=== PATIENT | female | born 1980 | race Caucasian/White ===

== ENCOUNTER 2020-02-14 11:46 | Emergency (ER) | payer MEDICAID ==
[~2020-02-14] VITALS: Ht 170.2 cm; Wt 119.1 kg
[~2020-02-14 11:46] MED LIST: ALBU8.5H4 IH; AMOX-422 PO; AZIT-63 PO; ESCI20TA29 PO; GABA-338 PO; INSU100V15 SQ; INSU100V36 SQ; L-THYROXINE; LISI-222 PO; METF500T PO
[2020-02-14] MEDS ORDERED: clindamycin 600mg/D5W 50ml 50 ML IV ONE (14:25)
[2020-02-14] MEDS ORDERED: morphine 4 MG/ML inj SYRINge IV ONE (14:25)
[2020-02-14] MEDS ORDERED: ondansetron/PF 4mg/2ml inj IV ONE ×2 (14:25→17:30)
[2020-02-14] MEDS ORDERED: normal saline 1000ML IV soln IV ONE (14:25)
[2020-02-14 14:52] LABS: BASOPHILS # (AUTO) 0.1 X10'3 (0-0.2); BASOPHILS % (AUTO) 0.7 % (0-1); EOSINOPHILS # (AUTO) 0.1 X10'3 (0-0.9); EOSINOPHILS % (AUTO) 0.8 % (0-6); HEMOGLOBIN 13.3 g/dl (12.0-16.0); LYMPHOCYTES % (AUTO) 10.5 % (21-51); MEAN CORPUSCULAR HEMOGLOBIN 29.1 PG (27.0-31.0); MEAN CORPUSCULAR HGB CONC 33.3 g/dL (33.0-36.5); MEAN CORPUSCULAR VOLUME 87.4 FL (78-98); MEAN PLATELET VOLUME 7.3 FL (7.4-10.4); MONOCYTES # (AUTO) 0.4 X10'3 (0-0.9); MONOCYTES % (AUTO) 4.8 % (2-12); NEUTROPHILS # (AUTO) 7.7 X10'3 (1.8-7.7); NEUTROPHILS % (AUTO) 83.2 % (42-75); PLATELET COUNT 372 X10'3 (140-440); RED BLOOD COUNT 4.58 X10'6 (4.20-5.60); RED CELL DISTRIBUTION WIDTH 14.1 % (11.5-14.5); WHITE BLOOD COUNT 9.3 X10'3 (4.5-11.0)
[2020-02-14 15:15] LABS: ALANINE AMINOTRANSFERASE 15 U/L (12-78); ALBUMIN 3.2 G/DL (3.4-5.0); ALBUMIN/GLOBULIN RATIO 0.7 (1.1-1.5); ALKALINE PHOSPHATASE 109 IU/L (46-116); ANION GAP 9 (8-16); ASPARTATE AMINO TRANSFERASE 6 U/L (10-37); BILIRUBIN,TOTAL 0.4 MG/DL (0.1-1.0); BLOOD UREA NITROGEN 15 MG/DL (7-18); BUN/CREATININE RATIO 13.6 (6.6-38.0); CALCIUM 9.1 MG/DL (8.5-10.1); CHLORIDE 95 MMOL/L (99-107); POTASSIUM 4.5 MMOL/L (3.5-5.1); SODIUM 128 MMOL/L (135-145); TOTAL CARBON DIOXIDE 23.6 MMOL/L (24-32); TOTAL PROTEIN 7.6 G/DL (6.4-8.2); eGFR 56 ML/MIN
[2020-02-14 15:20] LABS: GLUCOSE 699 MG/DL (70-104)
[2020-02-14] MEDS ORDERED: insulin regular, human U-100 3ml vial - multi-dose IV ONE (15:30)
[2020-02-14] MEDS ORDERED: iohexol 300mg/ml 100ml inj. ONE (15:43)
[2020-02-14] MEDS ORDERED: MESSAGE TO NURSING PO ONE (16:10)
[2020-02-14] MEDS ORDERED: morphine 2 MG/ML inj. syringe IV ONE (17:30)
[2020-02-14] MEDS ORDERED: insulin regular, human U-100 3ml vial - multi-dose SQ ONE (18:00)
--- NOTE | 2020-02-14 18:22 | NUR ---
CALLED [facility] AT 18:22. ETA FOR TRANSPORT WITHIN THE HOUR
[2020-02-14 18:38] VITALS: BP 122/70
== END 2020-02-14 18:35 | disposition short-term general hospital (02) ==
LOC: ER 11:47
DX: K04.7 Periapical abscess without sinus (principal); R68.84 Jaw pain; R22.0 Localized swelling, mass and lump, head; J45.909 Unspecified asthma, uncomplicated; E11.9 Type 2 diabetes mellitus without complications; G89.29 Other chronic pain; Z90.49 Acquired absence of other specified parts of digestive tract; Z98.890 Other specified postprocedural states; Z56.0 Unemployment, unspecified; Z88.5 Allergy status to narcotic agent; Z79.2 Long term (current) use of antibiotics; Z79.4 Long term (current) use of insulin; Z79.899 Other long term (current) drug therapy
CPT/HCPCS: 36415; 70491; 80053; 82948; 83605; 84145; 85025; 85610; 87040; 87635; 96365; 96372; 96375; 96376; 99285; J2270; J2405; J7030; Q9967; J1815; J3490